=== PATIENT | male | born 1980 | race African-American/Black ===

== ENCOUNTER 2021-08-29 14:33 | Emergency (ER) | payer BC, OTHER ==
[2021-08-29] MEDS ORDERED: IBUPROFEN 600 MG TAB PO STA (15:39)
--- NOTE | 2021-08-29 15:43 | ED ---
General Adult HPI - General Chief complaint: Urogenital Stated complaint: Testicle issues Time Seen by Provider: 08/29/21 15:24 Source: patient, RN notes reviewed, old records reviewed Mode of arrival: ambulatory Limitations: no limitations - History of Present Illness Initial comments: This is a well-appearing 41-year-old male, alert and oriented 4, presents to the emergency room with right testicular and right groin pain since Thursday. He states that he was lifting a safe on Thursday over 500 pounds with 3 other guys and then the pain developed on Thursday. He states he feels a pulling sensation 8 out of 10. He denies any dysuria or penile discharge. He states that he has been using Motrin every 8 hours with no relief. Last bowel movement was today and normal. 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 -: days(s) (5) Severity scale (1-10): 8 Quality: other (pulling) Consistency: constant Improves with: none Worsens with: none Associated Symptoms: denies other symptoms Treatments Prior to Arrival: none - Related Data Previous Rx's Medication Instructions Recorded levoFLOXacin 500 mg PO DAILY 10 Days #10 tab 08/29/21 Allergies Allergy/AdvReac Type Severity Reaction Status Date / Time bee pollen Allergy Rash/Hives Verified 08/29/21 15:21 Penicillins Allergy Unknown Verified 08/29/21 15:21 Childhood Review of Systems ROS Statement: Those systems with pertinent positive or pertinent negative responses have been documented in the HPI. ROS Other: All systems not noted in ROS Statement are negative. Past Medical History Past Medical History: No Reported History History of Any Multi-Drug Resistant Organisms: None Reported Additional Past Surgical History / Comment(s): lung surgery right lobectomy. Past Psychological History: No Psychological Hx Reported Smoking Status: Current every day smoker Past Alcohol Use History: Occasional Past Drug Use History: Marijuana General Exam Limitations: no limitations General appearance: alert, in no apparent distress Head exam: Present: atraumatic, normocephalic, normal inspection Eye exam: Present: normal appearance, PERRL, EOMI. Absent: conjunctival injection, periorbital swelling Neck exam: Present: normal inspection Respiratory exam: Present: normal lung sounds bilaterally. Absent: respiratory distress, wheezes, rales, rhonchi, stridor Cardiovascular Exam: Present: tachycardia GI/Abdominal exam: Present: soft, normal bowel sounds. Absent: distended, tenderness, guarding, rebound, rigid exam: Present: scrotal swelling (Right testicle swelling), circumcision. Absent: testicular tenderness, urethral discharge External exam: Present: normal external exam, other (No inguinal masses noted). Absent: erythema, lesions, lacerations, ecchymosis Back exam: Present: normal inspection, full ROM. Absent: tenderness, CVA tenderness (R), CVA tenderness (L) Neurological exam: Present: alert, oriented X3, normal gait Psychiatric exam: Present: normal affect, normal mood Skin exam: Present: warm, dry, intact, normal color. Absent: rash, diaphoretic Course Vital Signs 08/29/21 08/29/21 15:13 17:56 Temperature 98.0 F 98 F Pulse Rate 103 H 90 Respiratory 19 18 Rate Blood Pressure 116/74 132/78 O2 Sat by Pulse 98 99 Oximetry Medical Decision Making - Medical Decision Making Ultrasound of the scrotum shows no evidence of testicular torsion. There is a right hydrocele measuring 6.2 x 3.4 x 2.4 cm no presence of varicocele. There is increased vascularity to the right epididymis suggesting epididymitis with a right-sided hydrocele. There is no evidence of hernia. Urinalysis shows trace blood, negative nitrites, large leukocyte esterase and elevated WBC count. Patient denies any risk factors for a sexual transmitted infections. Urinalysis was also sent for gonorrhea Chlamydia and Trichomonas testing. He does state that he did try anal sex with his significant other last week. Patient will be treated for epididymitis directed to follow up with his primary care doctor in 1 week. - Lab Data Lab Results 08/29/21 Range/Units 16:32 Urine Color Yellow Urine Appearance Cloudy (Clear) Urine pH 6.0 (5.0-8.0) Ur Specific [place] 1.025 (1.001-1.035) Urine Protein 1+ H (Negative) Urine Glucose (UA) Negative (Negative) Urine Ketones Negative (Negative) Urine Blood Trace H (Negative) Urine Nitrite Negative (Negative) Urine Bilirubin Negative (Negative) Urine Urobilinogen 6.0 (<2.0) mg/dL Ur Leukocyte Esterase Large H (Negative) Urine RBC 16 H (0-5) /hpf Urine WBC >182 H (0-5) /hpf Ur Squamous Epith Cells 2 (0-4) /hpf Urine Mucus Rare H (None) /hpf Disposition Clinical Impression: Epididymitis Disposition: HOME SELF-CARE Condition: Good Instructions (If sedation given, give patient instructions): Epididymitis (ED) Additional Instructions: Take medication as prescribed and follow-up with the primary care doctor in 1 week. Return to the emergency room with any new or worsening symptoms. Prescriptions: levoFLOXacin 500 mg PO DAILY 10 Days #10 tab Is patient prescribed a controlled substance at d/c from ED?: No Referrals: Tye Moreau MD [Primary Care Provider] - 1-2 days Time of Disposition: 17:10
--- NOTE | 2021-08-29 16:43 | US ---
EXAMINATION TYPE: US scrotum with doppler. Grayscale and color Doppler Duplex imaging performed of t dorothy scrotum. DATE OF EXAM: 08/29/2021 COMPARISON: NONE CLINICAL HISTORY: right testicle pain swelling. EXAM MEASUREMENTS: TESTICLES: Right Testicle: 4.0 x 2.8 x 2.9 cm Left Testicle: 4.9 x 2.7 x 2.4 cm EPIDIDYMIS HEAD: Right Epididymis: 1.2 cm Left Epididymis: 1.1 cm Doppler performed to assess for testicular vascularity; good bilateral color flow and waveforms are s een. There is no evidence of testicular torsion. Right hydrocele measuring 6.2 x 3.4 x 2.4cm Presence of varicoceles: no Increased vascularity to right epididymis suggestive of epididymitis IMPRESSION: Right-sided epididymitis with right-sided hydrocele.
--- NOTE | 2021-08-29 16:45 | US ---
EXAMINATION TYPE: US groin RT DATE OF EXAM: 08/29/2021 COMPARISON: NONE CLINICAL HISTORY: pain. No evidence of hernia at this time. IMPRESSION: No hernia seen.
[2021-08-29 16:49] LABS: Appearance,Urine Cloudy (Clear); Bilirubin,Urine Negative (Negative); Blood,Urine Trace (Negative); Color,Urine Yellow; Glucose,Urine (UA) Negative (Negative); Ketones,Urine Negative (Negative); Leukocyte Esterase,Urine Large (Negative); Mucus,Urine Rare /hpf; Nitrite,Urine Negative (Negative); Protein,Urine 1+ (Negative); RBC,Urine 16 /hpf (0-5); Specific Gravity,Urine 1.025 (1.001-1.035); Squamous Epithelial Cell,Urine 2 /hpf (0-4); WBC,Urine >182 /hpf (0-5)
[2021-08-29] MEDS ORDERED: cefTRIAXone 250 MG VIAL IM STA (17:10)
[2021-08-29] MEDS ORDERED: cefTRIAXone 500 MG VIAL IM STA (17:21)
[2021-08-29 17:57] VITALS: BP 132/78; PULSE 90; RESP 18; TEMP 98
== END 2021-08-29 17:57 | disposition home or self-care (01) ==
LOC: EC 14:33
DX: N45.1 Epididymitis (principal); F17.200 Nicotine dependence, unspecified, uncomplicated; Z88.0 Allergy status to penicillin; Z91.018 Allergy to other foods
CPT/HCPCS: 76870; 81001; 87086; 93975; 96372; 99284

== ENCOUNTER → 2024-07-12 | Outpatient (CLI) | payer OTHER ==
--- NOTE | 2024-07-12 12:48 | XR ---
EXAMINATION TYPE: XR hand complete RT DATE OF EXAM: 07/12/2024 COMPARISON: NONE HISTORY: Laceration TECHNIQUE: Three views are submitted. FINDINGS: The osseous structures are intact. The joint spaces are preserved and there is no acute fracture or dislocation. Soft tissue laceration is adjacent to the second and third digits with subcutaneous air . No radio metallic foreign body. IMPRESSION: 1. No definite acute fracture or dislocation if symptoms persist, follow-up study in 7 to 10 days wo uld be suggested. 2. Soft tissue air and edema compatible with patient's history of laceration adjacent to the second a nd third digits. No radio metallic foreign body.
== END | disposition home or self-care (01) ==
LOC: RADXRMAIN 12:20
PROVIDERS: ATTEND Emergency Medicine
DX: S61.411A Laceration without foreign body of right hand, initial encounter (principal); S60.221A Contusion of right hand, initial encounter